=== PATIENT | female | born 1985 | race Hispanic/Latino ===

== ENCOUNTER 2019-01-18 19:11 | Inpatient (IN) | payer OTHER ==
[~2019-01-18 19:11] MED LIST: Acetaminophen 500 MG TAB PO PRN; Butorphanol Tartrate 1 MG/ML VIAL SLOW IVP PRN; HYDROcodone/Acetaminophen 5/325 mg Tablet PO PRN; Ibuprofen 800 MG TAB PO PRN; Lidocaine 1% (PF) 30 ML VIAL SC PRN; NS / Oxytocin 40 units/1000ml 1,000 ML IV PRN; NS w/ Oxytocin 10 units 500 ML IV SCH; Ondansetron PF 4 MG/2 ML Vial IVP PRN; Promethazine HCl 25 MG/ML VIAL IM PRN; hydrALAZINE 20 MG/ML VIAL SLOW IVP PRN
[2019-01-18] MEDS ORDERED: Misoprostol 200 MCG TAB PR PRN (19:33)
[2019-01-18 19:52] VITALS: BMI 31.4
[2019-01-18] MEDS: Misoprostol 100 MCG TAB VAG SCH ×2 (20:21→23:51)
[2019-01-18 20:52] LABS: Hemoglobin 10.8 g/dL (12.0-16.0); Mean Corpuscular HGB CONC 34.7 g/dL (32.0-36.0); Mean Corpuscular Volume 89.1 fL (78.0-98.0); Platelet Count 142 thou/uL (130-400); RBC Distribution Width 12.6 % (11.5-14.5); Red Blood Cell (RBC) Count 3.49 mill/uL (4.20-5.40); White Blood Cell (WBC) Count 9.9 thou/uL (4.8-10.8)
[2019-01-18 21:31] LABS: Syphilis Antibody Nonreactive (Nonreactive); Syphilis Antibody Index 0.05 S/CO (<1.00 Non-Reactive)
[2019-01-18 23:32] LABS: HBSAg Index 0.12 S/CO (0-0.99); Hep B Surf Ag Non-Reactive S/CO (NonReactive)
[2019-01-19] MEDS ORDERED: Fentanyl 4 mcg/Bup 0.1% Cadd 100 ML ONE (03:55)
[2019-01-19] MEDS ORDERED: ePHEDrine/0.9% NaCl/PF SYRINGE 50 mg/10 ml SLOW IVP PRN (04:47)
[2019-01-19] MEDS ORDERED: Promethazine HCl 25 MG/ML VIAL IM PRN (04:47)
[2019-01-19] MEDS ORDERED: Lactated Ringer's 500 ML IV PRN (04:47)
[2019-01-19] MEDS ORDERED: Ondansetron PF 4 MG/2 ML Vial IVP PRN (04:47)
[2019-01-19] MEDS ORDERED: Acetaminophen 325 MG TAB PO PRN (04:47)
[2019-01-19] MEDS ORDERED: diphenhydrAMINE 50 MG/ML VIAL IVP PRN (04:47)
[2019-01-19] MEDS ORDERED: Naloxone HCl 0.4 mg/ml Vial IVP PRN ×2 (04:47)
[2019-01-19] MEDS ORDERED: Communication Order-Pharmacy FS SCH (05:00)
[2019-01-19] MEDS ORDERED: Fentanyl 4 mcg/Bupivacaine 0.1% Cassette 100 ML EPIDURAL SCH (05:00)
[2019-01-19] MEDS ORDERED: Bisacodyl 10 MG SUPP PR PRN (05:16)
[2019-01-19] MEDS ORDERED: Milk Of Magnesia 30 ML UDCUP PO PRN (05:16)
[2019-01-19] MEDS ORDERED: Benzocaine-Menthol 82.5 ML CAN TOP PRN (05:16)
[2019-01-19] MEDS ORDERED: diphenhydrAMINE 25 MG CAP PO PRN (05:16)
[2019-01-19] MEDS ORDERED: Lanolin Ointment 7 GM TUBE TOP PRN (05:16)
[2019-01-19] MEDS ORDERED: hydrALAZINE 20 MG/ML VIAL SLOW IVP PRN (05:16)
--- NOTE | 2019-01-19 05:16 | PDOC.OPDEL ---
OB Operative/Delivery Note Delivery Dr/Surgeon: Ebony Pre-Delivery Diagnosis: elective induction Procedure/Post Delivery Dx: spontaneous vaginal delivery Weeks gestation: 40 - Findings A Sex: female - 1 min: 8 - 5 min: 9 - Additional Findings/Plan Placenta delivered: spontaneous Repaired Obstetrical Laceration: none Estimated blood loss: 120 qbl Post delivery plan: routine recovery
[2019-01-19] MEDS ORDERED: NS / Oxytocin 40 units/1000ml 1,000 ML IV SCH (05:30)
[2019-01-19] MEDS: Misoprostol 100 MCG TAB VAG SCH (07:36)
[2019-01-19] MEDS: Docusate Calcium (SURFAK) 240 MG CAP PO SCH ×2 (09:22→21:28)
[2019-01-19] MEDS: Ibuprofen 800 MG TAB PO SCH ×3 (09:22→21:28)
[2019-01-19] MEDS: Ferrous Sulfate 325 MG TAB PO SCH ×2 (09:23→15:42)
[2019-01-19] MEDS ORDERED: Bupivacaine/Epinephrine 0.25% 30 ML VIAL ONE (11:11)
[2019-01-19] MEDS: traMADol HCl 50 MG TAB PO PRN (12:30)
[2019-01-20] MEDS: Ibuprofen 800 MG TAB PO SCH (05:26)
--- NOTE | 2019-01-20 07:36 | PDOC.PP ---
Post Progress Note Post Day #: 1 PO intake tolerated: yes Flatus: yes Ambulation: yes Vital Signs (12 hours) Temp Pulse Resp BP Pulse Ox 01/20/19 05:25 97.6 F 72 16 134/73 01/20/19 00:15 97.6 F 76 16 142/77 H 01/19/19 19:50 97.7 F 79 16 130/62 96 Weight Weight 183 lb Result Diagrams: 01/18/19 20:43 Additional Labs: Post Labs Blood Type O POSITIVE 01/18/19 21:52 Hep Bs Antigen Non-Reactive S/CO (NonReactive) 01/18/19 20:43 - Assessment/Plan Doing well post day 1. Bottle feeding. Discharge home. F/u 6 weeks.
[2019-01-20 07:58] VITALS: BP 120/64; TEMP 97.7
[2019-01-20] MEDS: Docusate Calcium (SURFAK) 240 MG CAP PO SCH (08:24)
[2019-01-20] MEDS: Ferrous Sulfate 325 MG TAB PO SCH (08:25)
[2019-01-20] MEDS ORDERED: Adacel (T-DAP) 0.5 ML SYRINGE IM ONE (09:00)
[2019-01-20] MEDS: traMADol HCl 50 MG TAB PO PRN (11:58)
== END 2019-01-20 13:29 | disposition home or self-care (01) | DRG 807 ==
LOC: L&D 19:11 → 3SW 01-19 06:55
PROVIDERS: ADMIT Obstetrics & Gynecology; ATTEND Obstetrics & Gynecology
PROC: 10E0XZZ Delivery of Products of Conception, External Approach (ICD-10-PCS; principal; 2019-01-19)
DX: O77.0 Labor and delivery complicated by meconium in amniotic fluid (principal); Z37.0 Single live birth; Z3A.40 40 weeks gestation of pregnancy
CPT/HCPCS: 36415; 85027; 86780; 86850; 86900; 86901; 87340; J0595; J2001